=== PATIENT | male | born 1965 | race Asian ===

== ENCOUNTER 2019-07-20 21:15 | Emergency (ER) | payer OTHER ==
[~2019-07-20] VITALS: Ht 162.6 cm; Wt 62.3 kg
[2019-07-20 21:31] VITALS: Ht 162.6 cm; Wt 62.3 kg
[2019-07-20 23:27] VITALS: BP 131/74
== END 2019-07-20 23:27 | disposition home or self-care (01) ==
LOC: ED 21:15
DX: S61.213A Laceration without foreign body of left middle finger without damage to nail, initial encounter (principal); W31.89XA Contact with other specified machinery, initial encounter; Y93.89 Activity, other specified; Y92.89 Other specified places as the place of occurrence of the external cause; Y99.0 Civilian activity done for income or pay
CPT/HCPCS: 90715; J2001

== ENCOUNTER 2019-07-22 11:48 | Emergency (ER) | payer OTHER ==
[~2019-07-22] VITALS: Ht 162.6 cm; Wt 71.2 kg
[2019-07-22 11:54] VITALS: Ht 162.6 cm; Wt 71.2 kg
[2019-07-22 13:42] VITALS: BP 144/84
== END 2019-07-22 12:42 | disposition home or self-care (01) ==
LOC: ED 11:48
DX: S61.213D Laceration without foreign body of left middle finger without damage to nail, subsequent encounter (principal); L08.9 Local infection of the skin and subcutaneous tissue, unspecified; E78.00 Pure hypercholesterolemia, unspecified; X58.XXXD Exposure to other specified factors, subsequent encounter

== ENCOUNTER 2019-08-02 09:58 | Emergency (ER) | payer OTHER ==
[~2019-08-02] VITALS: Ht 162.6 cm; Wt 54.4 kg
[2019-08-02 10:16] VITALS: Ht 162.6 cm; Wt 54.4 kg
[2019-08-02 10:51] VITALS: BP 143/74
== END 2019-08-02 10:51 | disposition home or self-care (01) ==
LOC: ED 09:58
DX: S61.213D Laceration without foreign body of left middle finger without damage to nail, subsequent encounter (principal); E78.00 Pure hypercholesterolemia, unspecified; W31.89XD Contact with other specified machinery, subsequent encounter